=== PATIENT | female | born 1960 | race Caucasian/White ===

== ENCOUNTER 2021-11-16 10:00 | Outpatient (CLI) | payer BC ==
[~2021-11-16] VITALS: Ht 170.2 cm; Wt 72.6 kg
[2021-11-19 07:45] VITALS: BP_SYST 135
[2021-11-19] MEDS ORDERED: CEFAZOLIN SOD 1 GM in D5W 50 ML IV ONE (07:45)
[2021-11-19] MEDS ORDERED: cefOXitin SODIUM 2 GM in D5W 100 ML IV ONE (07:45)
== END 2021-11-16 11:00 | disposition home or self-care (01) ==
LOC: SLB 10:00 → UNDOADMIN 11-19 06:57 → SMU 11-19 06:57 → UNDODISIN 11-19 08:30 → EDSTATUS 11-19 09:00
PROVIDERS: ATTEND Colon & Rectal Surgery
DX: Z01.812 Encounter for preprocedural laboratory examination (principal); Z20.822 Contact with and (suspected) exposure to COVID-19; C18.9 Malignant neoplasm of colon, unspecified
CPT/HCPCS: 36415; 87081; 87635; U0003; 86886; 86900; 86901; J0690; J0694; J7060

== ENCOUNTER 2021-12-04 05:30 | Inpatient (IN) | payer BC ==
[2021-12-04] VITALS (9 sets, daily range): BP systolic 128–176
[~2021-12-04] VITALS: Ht 170.2 cm; Wt 67.1 kg
[2021-12-04] MEDS ORDERED: BUPIVACAINE LIPOSOME/PF 266 MG/20 ML VIAL INFIL ONE (07:07)
[2021-12-04] MEDS ORDERED: cefOXitin SODIUM 2 GM in D5W 100 ML IV ONE (07:30)
[2021-12-04] MEDS ORDERED: ONDANSETRON HCL 4 MG/2 ML VIAL IVP PRN ×2 (08:15→10:00)
[2021-12-04] MEDS ORDERED: HYDROmorphone 1 MG/ML INJ. CARTRIDGE IVP PRN ×2 (08:15)
[2021-12-04] MEDS ORDERED: NALOXONE HCL 0.4 MG/ML AMP (NARCAN) IVP PRN ×5 (08:15→10:00)
[2021-12-04] MEDS ORDERED: HYDROmorphone 2 MG/ML VIAL IVP PRN (08:15)
[2021-12-04] MEDS ORDERED: SIMV20TA2 PO (08:56)
[2021-12-04] MEDS ORDERED: HYDROcodone/ACETAMIN 5-325 MG TAB (NORCO/ VICODIN) PO PRN (10:00)
[2021-12-04] MEDS: D5/0.45 NS 1,000 ML IV SCH (10:00)
[2021-12-04] MEDS ORDERED: ACETAMINOPHEN 325 MG TABLET PO PRN (10:00)
[2021-12-04] MEDS ORDERED: LR 1,000 ML IV.SOLN IV ONE (10:14)
[2021-12-04] MEDS ORDERED: KETOROLAC TROMETHAMINE 30 MG VIAL ONE (10:14)
[2021-12-04] MEDS ORDERED: HYDROmorphone 2 MG/ML VIAL ONE (10:14)
[2021-12-04] MEDS ORDERED: ROCURONIUM BROMIDE 10 MG/ML (ZEMURON) ONE (10:14)
[2021-12-04] MEDS ORDERED: NS IRRIG SOLN 1000 ML IR ONE (10:14)
[2021-12-04] MEDS ORDERED: fentaNYL CITRATE/PF 100 MCG/2 ML AMP ONE (10:14)
[2021-12-04] MEDS ORDERED: SUCCINYLCHOLINE CHLORIDE 20 MG/ML(QUELICIN) ONE (10:14)
[2021-12-04] MEDS ORDERED: ONDANSETRON HCL 4 MG/2 ML VIAL ONE (10:14)
[2021-12-04] MEDS ORDERED: PROPOFOL 200MG/ 20ML VIAL (DIPRIVAN) IV ONE (10:14)
[2021-12-04] MEDS ORDERED: SUGAMMADEX SODIUM 200 MG/2 ML VIAL IV ONE (10:14)
[2021-12-04] MEDS ORDERED: NS 1000 ML IV.SOLN IV ONE (10:14)
[2021-12-04] MEDS ORDERED: DEXAMETHASONE SOD PHOSPHATE 4 MG/ML VIAL ONE (10:14)
[2021-12-04] MEDS ORDERED: SEVOFLURANE 15 MIN GAS INH ONE (10:14)
[2021-12-04 10:31] LABS: HEMOGLOBIN 12.7 g/dL (12.0-16.0)
[2021-12-04 10:34] LABS: CALCIUM 7.7 mg/dL (8.4-11.0); CREATININE 0.97 mg/dL (0.55-1.30); POTASSIUM 3.2 mmol/L (3.5-5.1)
[2021-12-04] MEDS: HYDROcodone/ACETAMIN 5-325 MG TAB (NORCO/ VICODIN) PO PRN ×3 (12:53→21:17)
[2021-12-04] MEDS: HYDROmorphone 1 MG/ML INJ. CARTRIDGE IVP PRN ×3 (14:05→22:36)
[2021-12-04] MEDS: cefOXitin SODIUM 2 GM in D5W 100 ML IV SCH (21:12)
[2021-12-04] MEDS: FAMOTIDINE PF 20 MG/2 ML VIAL IVP SCH (21:13)
[2021-12-04] MEDS: SIMVASTATIN 20 MG TABLET PO SCH (21:14)
[2021-12-04] MEDS: ALVIMOPAN 12 MG CAPSULE PO SCH (21:14)
[2021-12-05 02:00] VITALS: BP_SYST 127
[2021-12-05] MEDS: D5/0.45 NS 1,000 ML IV SCH ×3 (03:28→16:52)
[2021-12-05] MEDS: HYDROmorphone 1 MG/ML INJ. CARTRIDGE IVP PRN (06:14)
[2021-12-05 07:06] LABS: BASOPHILS % (AUTO) 0.3 % (0.0-2.0); EOSINOPHILS % (AUTO) 0.1 % (0.0-4.0); HEMATOCRIT 35.6 % (36-48); HEMOGLOBIN 12.3 g/dL (12.0-16.0); LYMPHOCYTES # (AUTO) 1.3 K/uL (1.0-5.5); MEAN CORPUSCULAR HEMOGLOBIN 31 pg (27-31); MEAN CORPUSCULAR HGB CONC 35 % (32-36); MEAN CORPUSCULAR VOLUME 90 fL (79.0-98.0); MONOCYTES # (AUTO) 0.5 K/uL (0.0-1.0); MONOCYTES % (AUTO) 6.5 % (1.7-9.3); NEUTROPHILS # (AUTO) 5.1 K/uL (1.8-7.7); NEUTROPHILS % (AUTO) 74.1 % (40.0-70.0); PLATELET COUNT (AUTO) 129 K/uL (130-430); RED BLOOD CELL COUNT(AUTO) 3.94 MIL/uL (4.2-6.2); RED CELL DISTRIBUTION WIDTH 12.8 % (9.0-15.0); WHITE BLOOD COUNT (AUTO) 6.9 K/uL (4.8-10.8)
[2021-12-05 07:58] LABS: ALBUMIN 2.7 g/dL (3.4-4.8); CALCIUM 8.4 mg/dL (8.4-11.0); CREATININE 0.81 mg/dL (0.55-1.30); POTASSIUM 3.6 mmol/L (3.5-5.1); TOTAL BILIRUBIN 0.6 mg/dL (0.0-1.0)
[2021-12-05 08:00] VITALS: BP_SYST 129
[2021-12-05] MEDS: FAMOTIDINE PF 20 MG/2 ML VIAL IVP SCH ×2 (08:45→21:14)
[2021-12-05] MEDS: HYDROcodone/ACETAMIN 5-325 MG TAB (NORCO/ VICODIN) PO PRN ×3 (08:45→18:31)
[2021-12-05] MEDS: cefOXitin SODIUM 2 GM in D5W 100 ML IV SCH (08:46)
[2021-12-05] MEDS: ENOXAPARIN SODIUM 30 MG/0.3 ML SYRINGE SUBCUT SCH (08:51)
[2021-12-05] MEDS: ALVIMOPAN 12 MG CAPSULE PO SCH ×2 (10:47→21:11)
[2021-12-05 11:26] VITALS: BP_SYST 110
[2021-12-05] MEDS: METOCLOPRAMIDE HCL 10 MG/2 ML VIAL IVP SCH ×2 (12:39→21:12)
[2021-12-05 15:26] VITALS: BP_SYST 124
[2021-12-05 20:15] VITALS: BP_SYST 143
[2021-12-05] MEDS: SIMVASTATIN 20 MG TABLET PO SCH (21:11)
[2021-12-06] MEDS: D5/0.45 NS 1,000 ML IV SCH (00:13)
[2021-12-06 00:38] VITALS: BP_SYST 128
[2021-12-06] MEDS: HYDROcodone/ACETAMIN 5-325 MG TAB (NORCO/ VICODIN) PO PRN ×2 (03:56→11:19)
[2021-12-06] MEDS: METOCLOPRAMIDE HCL 10 MG/2 ML VIAL IVP SCH (06:34)
[2021-12-06 08:00] VITALS: BP_SYST 136
[2021-12-06] MEDS: ALVIMOPAN 12 MG CAPSULE PO SCH (08:51)
[2021-12-06] MEDS: FAMOTIDINE PF 20 MG/2 ML VIAL IVP SCH (08:51)
[2021-12-06] MEDS: ENOXAPARIN SODIUM 30 MG/0.3 ML SYRINGE SUBCUT SCH (08:54)
[2021-12-06 09:04] LABS: BASOPHILS % (AUTO) 0.5 % (0.0-2.0); EOSINOPHILS % (AUTO) 0.4 % (0.0-4.0); HEMATOCRIT 33.2 % (36-48); HEMOGLOBIN 11.4 g/dL (12.0-16.0); LYMPHOCYTES # (AUTO) 0.9 K/uL (1.0-5.5); LYMPHOCYTES % (AUTO) 19.8 % (20.5-51.5); MEAN CORPUSCULAR HEMOGLOBIN 31 pg (27-31); MEAN CORPUSCULAR HGB CONC 35 % (32-36); MEAN CORPUSCULAR VOLUME 90 fL (79.0-98.0); MONOCYTES # (AUTO) 0.3 K/uL (0.0-1.0); MONOCYTES % (AUTO) 6.5 % (1.7-9.3); NEUTROPHILS # (AUTO) 3.2 K/uL (1.8-7.7); NEUTROPHILS % (AUTO) 72.8 % (40.0-70.0); PLATELET COUNT (AUTO) 113 K/uL (130-430); RED BLOOD CELL COUNT(AUTO) 3.69 MIL/uL (4.2-6.2); RED CELL DISTRIBUTION WIDTH 12.9 % (9.0-15.0); WHITE BLOOD COUNT (AUTO) 4.4 K/uL (4.8-10.8)
[2021-12-06 09:05] LABS: CALCIUM 8.4 mg/dL (8.4-11.0); CREATININE 0.81 mg/dL (0.55-1.30); POTASSIUM 3.4 mmol/L (3.5-5.1)
[2021-12-06] MEDS ORDERED: POTASSIUM CHLORIDE 20 MEQ TAB.PRT.SR PO ONE (11:00)
[2021-12-06 11:37] VITALS: BP_SYST 133
[2021-12-06 12:57] VITALS: BP_SYST 132
== END 2021-12-06 14:30 | disposition home or self-care (01) | DRG 330 ==
LOC: SMU 05:30
PROVIDERS: ADMIT Colon & Rectal Surgery; ATTEND Colon & Rectal Surgery
PROC: 0DJD8ZZ Inspection of Lower Intestinal Tract, Via Natural or Artificial Opening Endoscopic (ICD-10-PCS; 2021-12-04)
PROC: 3E0T3BZ Introduction of Anesthetic Agent into Peripheral Nerves and Plexi, Percutaneous Approach (ICD-10-PCS; 2021-12-04)
PROC: 0DTN0ZZ Resection of Sigmoid Colon, Open Approach (ICD-10-PCS; principal; 2021-12-04 07:43)
DX: C18.7 Malignant neoplasm of sigmoid colon (principal); D61.818 Other pancytopenia; E78.5 Hyperlipidemia, unspecified; E87.6 Hypokalemia; D25.9 Leiomyoma of uterus, unspecified; D64.9 Anemia, unspecified; D69.6 Thrombocytopenia, unspecified; Z20.822 Contact with and (suspected) exposure to COVID-19
CPT/HCPCS: 36415; 80048; 80053; 85018; 85025; 86886; 86900; 86901; 87081; 88307; 88309; C1727; C9290; J0330; J0694; J1100; J1170; J1650; J1885; J2405; J2704; J2765; J3010; J3490; J7030; J7060; J7120; U0003